=== PATIENT | female | born 1995 | race American Indian/Alaskan Native ===

== ENCOUNTER 2016-04-23 08:54 | Emergency (ER) | payer MEDICAID ==
[2016-04-23 13:12] LABS: Bacteria,Urine 1+ /HPF (Negative); Bilirubin,Urine NEG (Negative); Blood,Urine NEG (Negative); Ketones,Urine NEG (Negative); Leukocyte Esterase,Urine SM (Negative); Mucus,Urine 2+ /HPF; Nitrite,Urine NEG (Negative); Protein,Urine <15 mg/dL mg/dL (Negative); Urobilinogen,Urine < 2.0 mg/dL (<2.0)
--- NOTE | 2016-04-23 15:11 | Emergency Department Report ---
Entered by MESFIN GREY, acting as scribe for MAYO THORNE PA. ED Female HPI - General Chief complaint: Urogenital-Female Stated complaint: LOWER ABD PAIN Source: patient Mode of arrival: Ambulatory Limitations: No Limitations - History of Present Illness Initial comments: 20 y/o female with no significant PMHx, presents to the ED c/o lower abdominal pain beginning 1 month ago. The abdominal pain is characterized as sharp and intermittent in quality. Associated symptoms of white vaginal discharge, and increased urinary frequency, but she denies nausea, vomiting, vaginal bleeding or spotting, chest pain, and SOB. Patient is sexually active and does not use protection, single partner. She denies Hx of STD and states she has been previously tested. LMP 03/06/2016, patient has had two negative home tests (most recently last week). MD Complaint: vaginal discharge (white in color), pelvic pain (lower, sharp and intermittent in quality) -: month(s) (1) Location: suprapubic Radiation: non-radiating Severity: moderate Quality: sharp Consistency: intermittent Improves with: none Worsens with: none Are you Now?: No (patient has had 2 negative home tests ( most recently last week)) Last Menstrual Period: 03/06/16 (patient states she has missed two menstrual periods) EDC: 12/11/16 Associated Symptoms: vaginal discharge (white), abdominal pain (suprapubic), other (urinary frequency, denies chest pain and vaginal bleeding). denies: nausea/vomiting, shortness of breath - Related Data Sexually active: Yes (no protection, single partner, no previous STD diagnosis) Previous Rx's Medication Instructions Recorded Last Taken Type Nitrofurantoin Fergus/M-Cryst 100 mg PO Q12HR #10 capsule 04/23/16 Unknown Rx [Macrobid CAP] metroNIDAZOLE [Flagyl] 500 mg PO Q12HR #14 tab 04/23/16 Unknown Rx Allergies Allergy/AdvReac Type Severity Reaction Status Date / Time solis Allergy Swelling Verified 04/23/16 09:57 ED Review of Systems Comment: All other systems reviewed and negative Cardiovascular: denies: chest pain Gastrointestinal: abdominal pain (lower). denies: nausea, vomiting Genitourinary: frequency, other (denies vaginal bleeding and spotting) ED Past Medical Hx - Past Medical History Hx Hypertension: No Hx Heart Attack/AMI: No Hx Liver Disease: No Hx Renal Disease: No Hx Seizures: No Hx Asthma: No Additional medical history: PILONIDAL CYSTS - Surgical History Additional Surgical History: . PILONIDAL CYSTS REMOVED - Social History Smoking Status: Never Smoker Substance Use Type: None - Medications Home Medications: Home Medications Medication Instructions Recorded Confirmed Last Taken Type Nitrofurantoin Fergus/M-Cryst 100 mg PO Q12HR #10 capsule 04/23/16 Unknown Rx [Macrobid CAP] metroNIDAZOLE [Flagyl] 500 mg PO Q12HR #14 tab 04/23/16 Unknown Rx ED Physical Exam - General Limitations: No Limitations General appearance: alert, in no apparent distress, other - Head Head exam: Present: atraumatic, normocephalic - Eye Eye exam: Present: normal appearance - Neck Neck exam: Present: normal inspection, full ROM (supple) - Respiratory Respiratory exam: Present: normal lung sounds bilaterally (clear to auscultation ). Absent: respiratory distress, wheezes - Cardiovascular Cardiovascular Exam: Present: regular rate, normal rhythm, normal heart sounds. Absent: systolic murmur, diastolic murmur, rubs, gallop - GI/Abdominal GI/Abdominal exam: Present: soft, tenderness (suprapubic), normal bowel sounds. Absent: guarding, rebound - Rectal Rectal exam: Present: deferred - External exam: Present: normal external exam. Absent: erythema, swelling, lesions Speculum exam: Present: normal speculum exam, vaginal discharge (white in color) . Absent: vaginal bleeding Bi-manual exam: Present: normal bi-manual exam. Absent: cervical motion tendernes - Extremities Exam Extremities exam: Present: normal inspection, full ROM - Back Exam Back exam: Present: normal inspection. Absent: CVA tenderness (R), CVA tenderness (L) - Neurological Exam Neurological exam: Present: alert, oriented X3 - Psychiatric Psychiatric exam: Present: normal affect, normal mood - Skin Skin exam: Present: warm, dry, intact ED Course Vital Signs 04/23/16 09:53 Temperature 97.5 F L Pulse Rate 83 Respiratory 17 Rate Blood Pressure 120/70 O2 Sat by Pulse 100 Oximetry ED Medical Decision Making - Lab Data Vital Signs 04/23/16 09:53 Temperature 97.5 F L Pulse Rate 83 Respiratory 17 Rate Blood Pressure 120/70 O2 Sat by Pulse 100 Oximetry Lab Results 04/23/16 Range/Units Unknown Urine Color Yellow (Yellow) Urine Turbidity Slightly-cloudy (Clear) Urine pH 7.0 (5.0-7.0) Ur Specific Ault 1.024 (1.003-1.030) Urine Protein <15 mg/dl (Negative) mg/dL Urine Glucose (UA) Neg (Negative) mg/dL Urine Ketones Neg (Negative) mg/dL Urine Blood Neg (Negative) Urine Nitrite Neg (Negative) Ur Reducing Substances Not Reportable Urine Bilirubin Neg (Negative) Urine Ictotest Not Reportable Urine Urobilinogen < 2.0 (<2.0) mg/dL Ur Leukocyte Esterase Sm (Negative) Urine WBC (Auto) 5.0 (0.0-6.0) /HPF Urine RBC (Auto) 3.0 (0.0-6.0) /HPF U Epithel Cells (Auto) 21.0 H (0-13.0) /HPF Urine Bacteria (Auto) 1+ (Negative) /HPF Urine Mucus 2+ /HPF Urine HCG, Qual Negative (Negative) - Medical Decision Making 20 y/o female patient presents complaining of intermittent lower abdominal pain and white vaginal discharge beginning 1 month ago. Her urinalysis reveals small leukocyte Estrace and her wet prep is positive for trichomoniasis. Gonorrhea and chlamydia testing has been ordered. Patient is in no acute distress at this time. She will be discharged home and is encouraged to follow up with a primary care provider. She will be sent home on Flagyl and Macrobid and is encouraged to return to the emergency room for any worsening symptoms. ED Disposition Clinical Impression: Trichomoniasis UTI (urinary tract infection) Qualifiers: Urinary tract infection type: acute cystitis Hematuria presence: without hematuria Qualified Code(s): N30.00 - Acute cystitis without hematuria Disposition: DISCHARGED TO HOME OR SELFCARE Is pt being admited?: No Does the pt Need Aspirin: No Condition: Stable Instructions: Trichomoniasis (ED), Urinary Tract Infection in Women (ED) Additional Instructions: Follow-up with primary care provider. Return to the emergency department if symptoms worsen. Prescriptions: metroNIDAZOLE [Flagyl] 500 mg PO Q12HR #14 tab Nitrofurantoin Fergus/M-Cryst [Macrobid CAP] 100 mg PO Q12HR #10 capsule Referrals: PRIMARY CARE, [Primary Care Provider] - 3-5 Days [facility] [Outside] - 3-5 Days Forms: Work/School Release Form(ED), STI Treatment and Prevention Time of Disposition: 15:07 This documentation as recorded by the QUE benton GRACE,accurately reflects the service I personally performed and the decisions made by ,MAYO THORNE, PA.
[2016-04-23 15:20] VITALS: BP 139/78
== END 2016-04-23 15:20 | disposition home or self-care (01) ==
LOC: ED 08:54
DX: N30.00 Acute cystitis without hematuria (principal); A59.9 Trichomoniasis, unspecified
CPT/HCPCS: 81001; 81025; 87210; 87591; 99284

== ENCOUNTER 2016-05-29 11:35 | Emergency (ER) | payer MEDICAID, OTHER ==
--- NOTE | 2016-05-29 16:18 | Emergency Department Report ---
ED General Adult HPI - General Chief complaint: Extremity Injury, Lower Stated complaint: KNEE AND WRIST JOINT PAIN Time Seen by Provider: 05/29/16 15:39 Source: patient Mode of arrival: Ambulatory Limitations: No Limitations - History of Present Illness Initial comments: Patient comes in with complaints of bilateral wrist, bilateral knees, bilateral ankle pain and swelling for about the past month without any injury. Patient thinks that she may have the start of RA as she states that her mother and grandmother have it. -: month(s) (1) Location: upper extremity, lower extremity Radiation: non-radiation Quality: aching, sharp Consistency: intermittent Improves with: rest Worsens with: movement Associated Symptoms: denies other symptoms. denies: chest pain, diaphoresis, fever/chills, headaches, loss of appetite, malaise, nausea/vomiting, rash, shortness of breath, syncope, weakness Treatments Prior to Arrival: none - Related Data Previous Rx's Medication Instructions Recorded Last Taken Type predniSONE [Deltasone] 60 mg PO QDAY 5 Days 05/29/16 Unknown Rx traMADol [Ultram] 50 mg PO Q4HR PRN #30 tablet 05/29/16 Unknown Rx Allergies Allergy/AdvReac Type Severity Reaction Status Date / Time [facility] Allergy Swelling Verified 05/29/16 13:04 ED Review of Systems ROS: Stated complaint: KNEE AND WRIST JOINT PAIN Other details as noted in HPI Constitutional: denies: chills, fever Eyes: denies: eye pain, eye discharge, vision change ENT: denies: ear pain, throat pain Respiratory: denies: cough, shortness of breath, wheezing Cardiovascular: denies: chest pain, palpitations Endocrine: no symptoms reported Gastrointestinal: denies: abdominal pain, nausea, diarrhea Genitourinary: denies: urgency, dysuria, discharge Musculoskeletal: joint swelling, arthralgia. denies: back pain, myalgia Skin: denies: rash, lesions Neurological: denies: headache, weakness, paresthesias Psychiatric: denies: anxiety, depression Hematological/Lymphatic: denies: easy bleeding, easy bruising ED Past Medical Hx - Past Medical History Hx Hypertension: No Hx Heart Attack/AMI: No Hx Liver Disease: No Hx Renal Disease: No Hx Seizures: No Hx Asthma: No Additional medical history: PILONIDAL CYSTS - Surgical History Past Surgical History?: No Additional Surgical History: . PILONIDAL CYSTS REMOVED - Family History Family history: connective tissue (RA) - Social History Smoking Status: Never Smoker Substance Use Type: None - Medications Home Medications: Home Medications Medication Instructions Recorded Confirmed Last Taken Type predniSONE [Deltasone] 60 mg PO QDAY 5 Days 05/29/16 Unknown Rx traMADol [Ultram] 50 mg PO Q4HR PRN #30 tablet 05/29/16 Unknown Rx ED Physical Exam - General Limitations: No Limitations General appearance: alert, in no apparent distress - Head Head exam: Present: atraumatic, normocephalic - Eye Eye exam: Present: normal appearance - ENT ENT exam: Present: mucous membranes moist - Neck Neck exam: Present: normal inspection, full ROM. Absent: tenderness, meningismus, lymphadenopathy, thyromegaly - Respiratory Respiratory exam: Present: normal lung sounds bilaterally. Absent: respiratory distress - Cardiovascular Cardiovascular Exam: Present: regular rate, normal rhythm. Absent: systolic murmur, diastolic murmur, rubs, gallop - GI/Abdominal GI/Abdominal exam: Present: soft, normal bowel sounds - Extremities Exam Extremities exam: Present: tenderness (tenderness noted to right > Left wrsits, bilateral knees and slight to ankles), joint swelling (swelling noted to right > Left wrsits, bilateral knees and slight to ankles) - Back Exam Back exam: Present: normal inspection - Neurological Exam Neurological exam: Present: alert, oriented X3, CN II-XII intact, normal gait, motor sensory deficit, reflexes normal - Psychiatric Psychiatric exam: Present: normal affect, normal mood - Skin Skin exam: Present: warm, dry, intact, normal color. Absent: rash ED Course Vital Signs 05/29/16 13:06 Temperature 98.3 F Pulse Rate 82 Respiratory 17 Rate Blood Pressure 128/73 O2 Sat by Pulse 100 Oximetry ED Medical Decision Making - Medical Decision Making patient is non-toxic and hemodynamically stable. There is no history of injury and she does not have bone tenderness and therefore I see no need for imaging at this time. She does have symptoms consistent with possible RA. I will start her on some steroids short term and refer to rheumatology. Critical care attestation.: If time is entered above; I have spent that time in minutes in the direct care of this critically ill patient, excluding procedure time. ED Disposition Clinical Impression: Arthralgia Disposition: DISCHARGED TO HOME OR SELFCARE Is pt being admited?: No Does the pt Need Aspirin: No Condition: Good Instructions: Rheumatoid Arthritis (ED) Prescriptions: predniSONE [Deltasone] 60 mg PO QDAY 5 Days traMADol [Ultram] 50 mg PO Q4HR PRN #30 tablet PRN Reason: Pain Referrals: PRIMARY MD ANNIE [Primary Care Provider] - 3-5 Days MAICOL MILES MD [Referring] - 3-5 Days Forms: Work/School Release Form(ED) Time of Disposition: 16:29
[2016-05-29 16:36] VITALS: BP 97/62
== END 2016-05-29 16:36 | disposition home or self-care (01) ==
LOC: ED 11:35
DX: M25.531 Pain in right wrist (principal); M25.532 Pain in left wrist; M25.561 Pain in right knee; M25.562 Pain in left knee; M25.571 Pain in right ankle and joints of right foot; M25.572 Pain in left ankle and joints of left foot; Z91.018 Allergy to other foods
CPT/HCPCS: 99282

== ENCOUNTER 2018-06-10 02:19 | Emergency (ER) | payer BC ==
[2018-06-10] MEDS ORDERED: ULTRAM PO ONE (03:32)
--- NOTE | 2018-06-10 03:47 | Emergency Department Report ---
Upper Extremity - HPI Chief Complaint: Extremity Injury, Upper Stated Complaint: RIGHT HAND SWELLING/ARM PAIN Time Seen by Provider: 06/10/18 03:14 Upper Extremity: Left Forearm, Left Wrist, Left Hand Occurred When: >5 Days Mechanism: Unsure Severity: moderate Symptoms: Yes Pain with Movement, Yes Limited Range of Movement, No Deformity, No Numbness, No Weakness, No Swelling, No Bruising/Ecchymosis, No Laceration or Abrasion Other History: The patient is a 42-year-old -B[place] female with a coworker who times daily percent for right carpal tunnel pain history of same in past pain radiates from right wrist up to her right elbow pain is exacerbated by use and is relieved by rest there is an intermittent tingling no paralysis that radiates from right elbow to her right thumb and index finger ED Review of Systems ROS: Stated complaint: RIGHT HAND SWELLING/ARM PAIN Other details as noted in HPI Constitutional: denies: chills, fever Eyes: denies: eye pain, eye discharge, vision change ENT: denies: ear pain, throat pain Respiratory: denies: cough, shortness of breath, wheezing Cardiovascular: denies: chest pain, palpitations Endocrine: no symptoms reported Gastrointestinal: denies: abdominal pain, nausea, diarrhea Genitourinary: denies: urgency, dysuria, discharge Musculoskeletal: arthralgia, myalgia, other (right hand forearm ). denies: back pain, joint swelling Skin: denies: rash, lesions Neurological: denies: headache, weakness, paresthesias Psychiatric: denies: anxiety, depression Hematological/Lymphatic: denies: easy bleeding, easy bruising ED Past Medical Hx - Past Medical History Previous Medical History?: Yes Hx Hypertension: No Hx Heart Attack/AMI: No Hx Liver Disease: No Hx Renal Disease: No Hx Seizures: No Hx Asthma: No Additional medical history: PILONIDAL CYSTS - Surgical History Past Surgical History?: Yes Additional Surgical History: . PILONIDAL CYSTS REMOVED - Social History Smoking Status: Never Smoker Substance Use Type: None - Medications Home Medications: Home Medications Medication Instructions Recorded Confirmed Last Taken Type predniSONE [Deltasone] 60 mg PO QDAY 5 Days tab 05/29/16 Unknown Rx traMADol [Ultram] 50 mg PO Q4HR PRN #30 tablet 05/29/16 Unknown Rx Cyclobenzaprine [Flexeril] 10 mg PO TID PRN #30 tablet 06/10/18 Unknown Rx Naproxen [Naprosyn TAB] 500 mg PO BID PRN #30 tablet 06/10/18 Unknown Rx predniSONE [Deltasone] 40 mg PO QDAY 5 Days #10 tab 06/10/18 Unknown Rx Upper Extremity Exam - Exam General: Vital signs noted. No distress. Alert and acting appropriately. Head and Torso: No HEENT Abnormality, No Neck Tenderness, No Chest/Lungs Abnormality, No Abdominal Tenderness, No Back Tenderness Shoulder Exam: Yes Normal Range of Motion in Shoulder, No Shoulder Tenderness, No Clavicle Tenderness, No Shoulder Deformity, No AC Joint Tenderness Arm Exam: No Arm/Humerus Tenderness, No Arm Deformity Elbow: Yes Elbow Tenderness, Yes Normal Range of Motion in Elbow, No Elbow Deformity Forearm: Yes Forearm Tenderness, Yes Pain with Pronation, Yes Pain with Supination, No Forearm Deformity Wrist: Yes Wrist Tenderness, Yes Normal ROM in Wrist, No Wrist Deformity, No Snuffbox Tenderness, No Pain with Axial Thumb Compression Hand: Yes Normal ROM in Digit(s), No Hand Tenderness, No Hand Deformity, No Digit Tenderness, No Digit(s) Deformity, No Tendon Dysfunction CMS Exam: Yes Normal Distal Pulses, Yes Normal Capillary Refill, Yes Normal Distal Sensation, No Broken Skin ED Course Vital Signs 06/10/18 02:30 Temperature 98 F Pulse Rate 76 Respiratory 18 Rate Blood Pressure 128/73 O2 Sat by Pulse 100 Oximetry ED Medical Decision Making - Medical Decision Making There is moderately no head tenderness to palpation moderate carpal region tend erness to palpation range of motion is intact distal pulses are intact [employer]IAN is less than 3 seconds bilaterally plan treatment for carpal versus overuse injury from spica Velcro splint NSAIDs muscle relaxants and follow with PCP in 2-3 days follow-up with orthopedic surgery should symptoms persist patient verbalizes agreement and understanding of same will be DC'd home in stable condition at this time Critical care attestation.: If time is entered above; I have spent that time in minutes in the direct care of this critically ill patient, excluding procedure time. ED Disposition Clinical Impression: Overuse injury, Carpal tunnel syndrome of right wrist Disposition: DC-01 TO HOME OR SELFCARE Is pt being admited?: No Does the pt Need Aspirin: No Condition: Stable Instructions: Carpal Tunnel Syndrome (ED) Prescriptions: predniSONE [Deltasone] 40 mg PO QDAY 5 Days #10 tab Cyclobenzaprine [Flexeril] 10 mg PO TID PRN #30 tablet PRN Reason: Muscle Spasm Naproxen [Naprosyn TAB] 500 mg PO BID PRN #30 tablet PRN Reason: pain Referrals: ORLANDO LIN MD [Primary Care Provider] - 3-5 Days Forms: Work/School Release Form(ED) Time of Disposition: 03:50
[2018-06-10 04:16] VITALS: BP 110/59
== END 2018-06-10 04:10 | disposition home or self-care (01) ==
LOC: ED 02:19
DX: S69.91XA Unspecified injury of right wrist, hand and finger(s), initial encounter (principal); G56.01 Carpal tunnel syndrome, right upper limb; X58.XXXA Exposure to other specified factors, initial encounter; Y93.89 Activity, other specified; Y92.89 Other specified places as the place of occurrence of the external cause; Y99.8 Other external cause status

== ENCOUNTER 2018-08-01 08:20 | Emergency (ER) | payer BC ==
[2018-08-01 08:47] VITALS: BP 123/76
--- NOTE | 2018-08-01 11:44 | Emergency Department Report ---
ED Female HPI - General Chief complaint: Urogenital-Female Stated complaint: VAG RASH Time Seen by Provider: 08/01/18 10:12 Source: patient Mode of arrival: Ambulatory Limitations: No Limitations - History of Present Illness Initial comments: Patient is a 23-year-old female presents to ED complaining of lesion to the outer vaginal area for the past 4 days. Patient states of lesions on the bit worse and presents to touch. Patient states that in vision. Is worsened with urine to the area. She denies fevers/chills/nausea vomiting/vaginal dischar ge/dysuria/abdominal pain - Related Data Previous Rx's Medication Instructions Recorded Last Taken Type predniSONE [Deltasone] 60 mg PO QDAY 5 Days tab 05/29/16 Unknown Rx traMADol [Ultram] 50 mg PO Q4HR PRN #30 tablet 05/29/16 Unknown Rx Cyclobenzaprine [Flexeril] 10 mg PO TID PRN #30 tablet 06/10/18 Unknown Rx Naproxen [Naprosyn TAB] 500 mg PO BID PRN #30 tablet 06/10/18 Unknown Rx predniSONE [Deltasone] 40 mg PO QDAY 5 Days #10 tab 06/10/18 Unknown Rx Acyclovir [Acyclovir Ointment] 1 applicatio TP 5XD #1 tube 08/01/18 Unknown Rx Allergies Allergy/AdvReac Type Severity Reaction Status Date / Time [facility] Allergy Swelling Verified 05/29/16 13:04 ED Review of Systems ROS: Stated complaint: VAG RASH Other details as noted in HPI Comment: All other systems reviewed and negative ED Past Medical Hx - Past Medical History Previous Medical History?: No Hx Hypertension: No Hx Heart Attack/AMI: No Hx Liver Disease: No Hx Renal Disease: No Hx Seizures: No Hx Asthma: No Additional medical history: PILONIDAL CYSTS - Surgical History Past Surgical History?: Yes Additional Surgical History: . PILONIDAL CYSTS REMOVED - Social History Smoking Status: Never Smoker Substance Use Type: None - Medications Home Medications: Home Medications Medication Instructions Recorded Confirmed Last Taken Type predniSONE [Deltasone] 60 mg PO QDAY 5 Days tab 05/29/16 Unknown Rx traMADol [Ultram] 50 mg PO Q4HR PRN #30 tablet 05/29/16 Unknown Rx Cyclobenzaprine [Flexeril] 10 mg PO TID PRN #30 tablet 06/10/18 Unknown Rx Naproxen [Naprosyn TAB] 500 mg PO BID PRN #30 tablet 06/10/18 Unknown Rx predniSONE [Deltasone] 40 mg PO QDAY 5 Days #10 tab 06/10/18 Unknown Rx Acyclovir [Acyclovir Ointment] 1 applicatio TP 5XD #1 tube 08/01/18 Unknown Rx ED Physical Exam - General Limitations: No Limitations General appearance: alert, in no apparent distress - Head Head exam: Present: atraumatic, normocephalic - Eye Eye exam: Present: normal appearance - ENT ENT exam: Present: mucous membranes moist - Neck Neck exam: Present: normal inspection - Respiratory Respiratory exam: Present: normal lung sounds bilaterally. Absent: respiratory distress - Cardiovascular Cardiovascular Exam: Present: regular rate, normal rhythm. Absent: systolic murmur, diastolic murmur, rubs, gallop - GI/Abdominal GI/Abdominal exam: Present: soft, normal bowel sounds - External exam: Present: erythema, lesions (ulcerative like lesion noted 6:00, about 1 cm in diameter, tender to palpation) - Extremities Exam Extremities exam: Present: normal inspection - Back Exam Back exam: Present: normal inspection - Neurological Exam Neurological exam: Present: alert, oriented X3 - Psychiatric Psychiatric exam: Present: normal affect, normal mood - Skin Skin exam: Present: warm, dry, intact, normal color. Absent: rash ED Course Vital Signs 08/01/18 08:31 Temperature 98.4 F Pulse Rate 80 Respiratory 18 Rate Blood Pressure 123/76 [Right] O2 Sat by Pulse 100 Oximetry ED Medical Decision Making - Medical Decision Making 23-year-old Female Presents with Genital Lesions Vaginal Area. Discussed Treatment with Palpation. Discussed with Patient Follow-Up with Medical Clinic for STD Testing. Discussed to Apply Topical aCyclovir 3 Times A Day for the Next 7 Days. Vital Signs Are Normal Patient Is in No Acute Distress Critical care attestation.: If time is entered above; I have spent that time in minutes in the direct care of this critically ill patient, excluding procedure time. ED Disposition Clinical Impression: Herpes genitalia Disposition: DC-01 TO HOME OR SELFCARE Is pt being admited?: No Does the pt Need Aspirin: No Condition: Stable Instructions: Genital Herpes Simplex (ED) Additional Instructions: Make sure to follow up with the primary care physician as discussed. Take all your medications as you've been prescribed. If you have any worsening symptoms or develop new symptoms please return to ED immediately. Prescriptions: Acyclovir [Acyclovir Ointment] 1 applicatio TP 5XD #1 tube Referrals: ORLANDO LIN MD [Primary Care Provider] - 3-5 Days Forms: Accompanied Note, Work/School Release Form(ED) Time of Disposition: 11:45
== END 2018-08-01 11:48 | disposition home or self-care (01) ==
LOC: ED 08:20
DX: A60.04 Herpesviral vulvovaginitis (principal); Z79.899 Other long term (current) drug therapy; Z91.018 Allergy to other foods
CPT/HCPCS: 99282; 99283